=== PATIENT | female | born 1995 | race Caucasian/White ===

== ENCOUNTER 2022-03-26 09:32 | Outpatient (RCR) | payer SELFPAY ==
[2022-03-27] MEDS: RHO(D) IMMUNE GLOBULIN 300 MCG/2 ML SYRINGE IM (18:15)
== END 2022-06-24 23:59 | disposition home or self-care (01) ==
LOC: ANHLAB 09:32
PROVIDERS: PCP Obstetrics & Gynecology; Visit Provider Obstetrics & Gynecology
DX: Z29.13 Encounter for prophylactic Rho(D) immune globulin (principal); O36.0190 Maternal care for anti-D [Rh] antibodies, unspecified trimester, not applicable or unspecified; Z3A.00 Weeks of gestation of pregnancy not specified
CPT/HCPCS: 36415; 85461; 86850; 86900; 86901; 90384; 96372; J2790

== ENCOUNTER 2022-06-16 21:15 | Inpatient (IN) | payer BC, SELFPAY ==
--- NOTE | 2022-06-16 21:15 | LDADM ---
This patient, Peri Colindres, was admitted to Labor/Delivery/Recovery [facility] on 06/16/22 at 21:15. Plans for labor, pain management and were discussed with patient. Patient/family oriented to hospital policies and general routines including ID bracelet, bed and alarms, visiting hours, pain management, procedures, bathroom and other care routines, personal items, smoking policy, room service/diet and guest tray routines, infant security routines, and visiting hours. Patient/Family are encouraged to report perceived risks to care and to ask questions if they do not understand what they are told or what they should do. See OBIX for further documentation.
[2022-06-16 21:30] VITALS: RESP 15; TEMP 37
[2022-06-16 21:31] VITALS: BP 132/87; PULSE 96
[2022-06-16 21:46] VITALS: BP 117/77; PULSE 84
[2022-06-16 22:01] VITALS: BP 121/84; PULSE 84
[2022-06-16 22:16] VITALS: BP 122/82; PULSE 81
[2022-06-17] VITALS (136 sets, daily range): BP systolic 92–143; BP diastolic 34–113; PULSE 40–238; RESP 16–17; TEMP 36.7–37.1; O2SAT 81–100; BMI 26.1
[2022-06-17 00:49] LABS: Basophils Percent Auto 0.4 % (0.2-1.2); Eosinophils Absolute Auto 0.1 K/mm3 (0-0.3); Eosinophils Percent Auto 0.5 % (0-4.4); Hematocrit 36.1 % (37.0-47.0); Hemoglobin 12.1 g/dL (12.0-15.0); Immature Granulocyte Absolute 0.05 K/mm3 (0.00-0.031); Immature Granulocyte Percent A 0.5 % (0-0.5); Lymphocytes Absolute Auto 2.28 K/mm3 (0.9-3.2); Lymphocytes Percent Auto 21.8 % (18.3-44.2); Mean Corpuscular HGB Conc 33.5 g/dl (32-36); Mean Corpuscular Hemoglobin 29.3 pg (26-34); Mean Corpuscular Volume 87.4 fl (80-100); Mean Platelet Volume 10.8 fl (7.4-10.4); Monocytes Absolute Auto 0.5 K/mm3 (0.1-0.6); Monocytes Percent Auto 4.4 % (2.6-8.5); Neutrophils Absolute Auto 7.6 K/mm3 (1.3-6.7); Neutrophils Percent Auto 72.4 % (45.5-73.1); Platelet Count Result 238 k/mm3 (150-375); Red Blood Count 4.13 M/mm3 (4.2-5.4); Red Cell Distribution Width 12.7 % (11.5-14.5); White Blood Count 10.4 K/mm3 (4.5-10.0)
--- NOTE | 2022-06-17 07:01 | PM.IMHP ---
H&P: HPI History of Present Illness Date/Time: 06/17/22 07:01 Chief Complaint: Induction of labor at term Narrative: such 26-year-old 2 para 1 with previous for breech who presents for induction of labor at 41 weeks gestation. The has been uncomplicated. The back is been discussed continuously throughout the with risks and benefits reviewed in great detail. She is negative for group B strep PMFSH Past Medical History Medical History (Updated 06/17/22 @ 07:04 by Antony Piedra MD) Hearing loss Surgical History Surgical History (Updated 06/17/22 @ 07:04 by Antony Piedra MD) H/O LEEP Family History Family History Grandparent Heart disease Acute myocardial infarction Grandparent Heart disease Acute myocardial infarction Father Hypertension Social History Social History Smoking status: Never smoker Substance use: never Lack of Transportation: No Lack of Food: Never True Current Housing: I Have Housing Concerned About Future Housing: No Difficulty Paying Gas/Electric Bills: No Difficulty Paying for Meds: No Currently Unemployed: No Education: Bachelor's Degree Difficulty w/ Childcare or Family Care: No Spiritual care concerns: No Meds Home Medications and Allergies Home Medications Medication Instructions Recorded Confirmed Type vit no.95-ferrous 1 tablet PO DAILY 02/03/19 06/17/22 History fumarate 28 mg-folic acid 800 mcg tablet () Allergies Allergy/AdvReac Type Severity Reaction Status Date / Time No Known Allergies Allergy Verified 05/13/22 15:21 Vital Signs Vital Signs - 24 hr 06/16/22 21:31 06/16/22 21:46 06/16/22 22:01 Temperature Pulse Rate 96 84 84 Respiratory Rate Blood Pressure 132/87 117/77 121/84 Oxygen Delivery 06/16/22 22:16 06/16/22 21:30 06/17/22 00:38 Temperature 98.6 F Pulse Rate 81 84 Respiratory Rate 15 Blood Pressure 122/82 130/87 Oxygen Delivery 06/17/22 00:30 06/17/22 04:43 06/17/22 03:42 Temperature 98.3 F 98.6 F Pulse Rate 86 Respiratory Rate 17 16 Blood Pressure 123/78 Oxygen Delivery 06/17/22 05:05 06/17/22 00:22 Temperature 98.4 F Pulse Rate Respiratory Rate 17 Blood Pressure Oxygen Delivery Room Air Exam Const: General: cooperative, healthy appearing and comfortable Nutritional Appearance: average body habitus Orientation/consciousness: oriented to person, oriented to place and oriented to time Resp: Effort & Inspection: normal respiratory effort Cardio: Rate: regular rate Rhythm: regular rhythm Heart sounds: S1 normal heart sound present and S2 normal heart sound present GI: Inspection: normal to inspection ( soft gravid uterus) : External Female Exam: normal external appearance Speculum Exam - Vagina: normal appearance of the vagina Speculum Exam - Cervix: normal appearance of the cervix ( cervix 2/60/2. Unable to rupture membranes. FHTs reassuring) H&P: Results Labs Labs: Short CBC 06/17/22 Range/Units 00:07 WBC 10.4 H (4.5-10.0) K/mm3 Hgb 12.1 D (12.0-15.0) g/dL Hct 36.1 L (37.0-47.0) % Plt Count 238 (150-375) k/mm3 Assessment and Plan Assessment and plan (1) Post-dates : Code(s): O48.0 - Post-term Status: Acute (2) Previous section: Code(s): Z98.891 - History of uterine scar from previous surgery Status: Acute Plan gentle induction of labor. She has an epidural candidate. Risks and benefits reviewed
--- NOTE | 2022-06-17 08:22 | WPDANESEPP ---
Anes - Eval Pre Procedure Procedure: labor epidural Date/Time: 06/17/22 08:22 Preop Diagnosis: labor pain Pre Op Diagnosis: labor Patient Data Age: 26 Gender: F Height: 1.63 m Weight: 69 kg Last Vital Signs Temp 36.9 C 06/17/22 05:05 Pulse 86 06/17/22 04:43 Resp 17 06/17/22 05:05 BP 123/78 06/17/22 04:43 O2 Del Method Room Air 06/17/22 00:22 Allergies Allergy/AdvReac Type Severity Reaction Status Date / Time No Known Allergies Allergy Verified 05/13/22 15:21 Home Medications Medication Instructions Recorded Confirmed Type vit no.95-ferrous 1 tablet PO DAILY 02/03/19 06/17/22 History fumarate 28 mg-folic acid 800 mcg tablet () Laboratory Tests 06/17/22 06/17/22 06/17/22 00:07 00:07 00:07 WBC 10.4 K/mm3 H K/mm3 (4.5-10.0) RBC 4.13 M/mm3 L M/mm3 (4.2-5.4) Hgb 12.1 g/dL D g/dL (12.0-15.0) Hct 36.1 % L % (37.0-47.0) MCV 87.4 fl fl (80-100) MCH 29.3 pg pg (26-34) MCHC 33.5 g/dl g/dl (32-36) RDW 12.7 % % (11.5-14.5) Plt Count 238 k/mm3 k/mm3 (150-375) MPV 10.8 fl H fl (7.4-10.4) Immature Gran % (Auto) 0.5 % % (0-0.5) Neut % (Auto) 72.4 % % (45.5-73.1) Lymph % (Auto) 21.8 % % (18.3-44.2) [place] % (Auto) 4.4 % % (2.6-8.5) Eos % (Auto) 0.5 % % (0-4.4) Baso % (Auto) 0.4 % % (0.2-1.2) Lymph # (Auto) 2.28 K/mm3 K/mm3 (0.9-3.2) [place] # (Auto) 0.5 K/mm3 K/mm3 (0.1-0.6) Eos # (Auto) 0.1 K/mm3 K/mm3 (0-0.3) Baso # (Auto) 0.0 K/mm3 K/mm3 (0.0-0.1) Abs Immat Gran (auto) 0.05 K/mm3 H K/mm3 (0.00-0.031) Absolute Neuts (auto) 7.6 K/mm3 H K/mm3 (1.3-6.7) Absolute Nucleated RBC 0.0 K/mm3 K/mm3 (0.0-0.012) Nucleated RBC % 0.0 % % (0.0-0.2) RPR Pending Blood Type O Negative Antibody Screen Positive Antibody Identification Passive Due to RH Imm Glob Antigen Identification Cancelled BEHZAD, IgG Interpret Not Performed BEHZAD, Poly Interpret Neg BEHZAD, Complement Interp Not Performed Patient hx anesthesia problems: none Family hx anesthesia problems: none Results Review: All pre-operative results and documents have been reviewed as part of the pre-operative evaluation. [facility] Past Medical History Medical History Hearing loss Surgical History Surgical History H/O LEEP Family History Family History Grandparent Heart disease Acute myocardial infarction Grandparent Heart disease Acute myocardial infarction Father Hypertension Social History Social History Smoking status: Never smoker Substance use: never Lack of Transportation: No Lack of Food: Never True Current Housing: I Have Housing Concerned About Future Housing: No Difficulty Paying Gas/Electric Bills: No Difficulty Paying for Meds: No Currently Unemployed: No Education: Bachelor's Degree Difficulty w/ Childcare or Family Care: No Spiritual care concerns: No Exam Day of Procedure 06/17/22 08:22 Patient weight: normal Heart: regular rate and rhythm Lungs: clear to auscultation and normal air movement Airway: Mallampati scale Neurological: alert and oriented
[2022-06-17] MEDS: LACTATED RINGERS 1,000 ML 125 ML IV CONT ×2 (08:49→10:03)
--- NOTE | 2022-06-17 12:32 | PM.OBPNLAB ---
Pain Control Date/time seen: 06/17/22 12:32 Pain control: tolerating well and epidural Pelvic Exam Dilation (cm): 4 Effacement (%): 75 station: -2 Amniotic membrane status: Leaking Contractions Monitor mode: Internal Contraction pattern: Regular Status status: Category ll
[2022-06-17] MEDS: OXYTOCIN 30 UNITS/NS 500 ML 30 UNITS/500 ML BAG IV CONT (12:38)
[2022-06-17 13:47] LABS: Rapid Plasma Reagin Non-Reactive (NonReactive)
--- NOTE | 2022-06-17 16:13 | PM.OBPRVD ---
OB - Delivery Note Procedure Delivery date: 06/17/22 Procedure: mil Induction method: AROM Delivery augmentation: Pitocin Delivery monitor: External FHT and Internal Uterine Route of delivery: Episiotomy description: None Laceration Description: Perineal - 1st Degree Delivery repair: vicryl Specimen: No Quantitative Blood Loss (ml): 60 Anesthesia type: Epidural Disposition: Floor [place] Baby Date of : 06/17/22 Time of : 16:03 Weeks of gestation at delivery: 41 gender: Female presentation: vertex position: Right Occiput Anterior Placenta delivery description: Spontaneous Cord Vessel Description: 3 Vessels, Nuchal Cord and Loose score one minute: 8 score five minutes: 9
[2022-06-17] MEDS: OXYTOCIN 30 UNITS/NS 500 ML 30 UNITS/500 ML BAG 125 UNITS IV CONT (16:43)
[2022-06-17] MEDS: LANOLIN (LANSINOH) 7.5 GM CREAM 1 APPLIC TOPICAL (18:26)
[2022-06-17] MEDS: WITCH HAZEL 40 PADS 1 PAD TOPICAL (18:26)
[2022-06-17] MEDS: BENZOCAINE 20% AER SPR (*SP) 56 GM CAN 1 SPRAY TOPICAL (18:26)
[2022-06-18] MEDS: ACETAMINOPHEN 325 MG TABLET 650 MG PO ×2 (04:21→14:42)
[2022-06-18 04:52] LABS: Hematocrit 30.3 % (37.0-47.0); Hemoglobin 10.2 g/dL (12.0-15.0)
--- NOTE | 2022-06-18 06:08 | PM.DS ---
DS: Admitting Diagnosis Discharge Date Admitting Diagnosis postdates /previous section DS: Discharge Diagnosis Discharge Diagnosis (1) Previous section: Code(s): Z98.891 - History of uterine scar from previous surgery Status: Acute (2) Post-dates : Code(s): O48.0 - Post-term Status: Acute DS: Summary Hospital Course Reason for hospitalization: patient was admitted for induction of labor at term with postdates Hospital Course: the patient underwent successful vaginal after . Her hospital course unremarkable. She remained afebrile. She was up, breast-feeding, eating regular diet, voiding without difficulty, ambulating, and without complaints. Time Spent with Patient Time attestation: Total time spent providing and/or coordinating discharge services: Exam Const: General: cooperative, healthy appearing and comfortable Nutritional Appearance: average body habitus Orientation/consciousness: oriented to person, oriented to place and oriented to time HENMT: Head: normal to inspection Resp: Effort & Inspection: normal respiratory effort Cardio: Rate: regular rate Rhythm: regular rhythm Heart sounds: S1 normal heart sound present and S2 normal heart sound present GI: Inspection: normal to inspection ( Fundus firm below the umbilicus) DS: Data Data Completed and Pending Labs on day of discharge: Labs from last 24 hours 06/18/22 06/17/22 04:17 00:07 Hgb 10.2 L Hct 30.3 L RPR Non-reactive Discharge Plan Discharge Attending physician on discharge: Antoyn Smith Discharging Clinician: Antony Smith Patient Disposition: Home, Self-Care Activity: may shower, no straining and pelvic rest Diet: heart healthy Wound Care Instructions: follow printed instructions Discharge Instructions: Education: Mom and Baby Guide Given to: Mother Follow-Up: Call your delivering provider's office for an appointment to be seen in: 4 Weeks Mom and baby should come to the [facility] for the follow-up appointment. Appointment Date/Time: June 19, 2022 at 1:30 pm What to expect at your follow-up visit: Physical Assessment Call [phone] if you are unable to keep your appointment time. BREAST CARE: * Wear a snug supportive bra. * For engorgement discomfort: Breast Feeding: * Apply warm moist washcloths * Express milk as needed to relieve engorgement * Wear loose clothing * For sore nipples: * Identify correct latch-on * Apply warm moist washcloths before and after nursing * Air dry nipples after nursing * May apply Lansinoh cream to nipples PERINEAL CARE: * Until bleeding stops, use your dyaln bottle after urinating * Change your pad frequently throughout the day * You may take sitz baths several times a day (fill your bathtub with warm water and soak for 20 minutes.) Do NOT bathe in the water * No tub baths until seen by your physician - You may shower ACTIVITY: * Rest as much as possible. * Do not exercise or lift anything heavier than your baby (such as laundry or other children.) * Avoid stairs or driving as much as possible. * Do not put anything into the vagina. No douching, tampons, or sexual activity until seen by physician. NOTIFY PHYSICIAN IF YOU HAVE ANY QUESTIONS OR IF ANY OF THE FOLLOWING SYMPTOMS OCCUR: * If your perineum becomes red, swollen, or more painful than what you have experienced in the hospital. * If your vaginal bleeding becomes foul smelling. * If your vaginal bleeding becomes more heavy than a period or if your bleeding changes from pink to bright red. However, you may pass an occasional walnut-sized clot once or twice for the first week . * If you experience a sharp, shooting pain in you calves. * If you discover a hard, reddened area on your breast or if you experien
[2022-06-18 07:30] VITALS: BP 125/70; PULSE 77; RESP 16; TEMP 36.9; O2SAT 99
[2022-06-18] MEDS: MULTIVIT/MIN/PREN/FOL AC/IRON TABLET 1 TAB PO (09:15)
--- NOTE | 2022-06-18 09:44 | WPDANLDPN2 ---
Anes-Prog Note L&D Date/Time: 06/18/22 09:44 Comfortable throughout: labor and delivery Neuraxial method: epidural Epidural/Spinal procedure site: clean & non-tender Neuro status: Neuro function grossly intact. Cardiovascular status: normal Respiratory status: normal Airway patency: baseline Mental status: baseline Post-Op hydration status: normal Vital Signs: Last Vital Signs Temp 98.4 F 06/18/22 07:30 Pulse 77 06/18/22 07:30 Resp 16 06/18/22 07:30 BP 125/70 06/18/22 07:30 Pulse Ox 99 06/18/22 07:30 O2 Del Method Room Air 06/17/22 00:22 Pain score (VAS): 0 I/O: Intake & Output 06/17/22 06/18/22 06/18/22 23:59 07:59 15:59 Intake Total 1500 Output Total 143 Balance 1357 Post-procedural complaints: none Patient feedback: Patient satisfied with anesthetic care.
[2022-06-18] MEDS: DOCUSATE SODIUM 100 MG CAPSULE PO (09:56)
[2022-06-18] MEDS: IBUPROFEN 600 MG TABLET PO (09:56)
[2022-06-18] MEDS: TETANUS,DIPHTHERIA,AC PERTUSSIS ADULT (0.5 ML) BOOSTRIX IM (09:59)
--- NOTE | 2022-06-18 10:41 | PC.NURSE ---
[id number] Introductions were made, then consulted with patient to assess needs related to . Mother led the conversation with her?plans to feed?her infant and the?experience so far. Resources provided for inpatient and outpatient services with the feeding sheet, mom/baby guide, business card and name written on the white board. Mother voiced understanding of information and requests assistance. Mother works well with her infant with encouragement and education. Encouraged understanding of the benefits of skin to skin (demonstrating unwrapping and placing upright on her chest), stimulating with massage touch, changing positions to encourage wakefulness, how to watch for early feeding cues, hand expression, responsive feeding, feeding on demand (aiming for 8-12 times in 24 hours, about every 2-3 hours), milk production, building/maintaining a milk supply, duration of feeding, signs of adequate intake/output and how to record on the feeding sheet. Large meconium stool diaper changed. Reviewed positioning and ear, shoulder, hip alignment, supporting the breast to facilitate a deep latch, asymmetrical latch (off-center), leading with the chin with a big, open, wide gape and body close to mother. latched optimally to the right breast in cross cradle position. Education given to mother of how to visualize suck/swallow ratios and listen for drinking at the breast. Infant was able to maintain latch without discomfort to mother. Nipple care reviewed with optimal latch and good positioning. Reviewed good handwashing when or touching the breast/nipples to prevent infection. Resources used to facilitate learning were used with the visual handouts, tool, mom and baby guide. Mother voiced understanding of skin to skin, stimulating with massage touch, responsive feedings, hand expressed colostrum, talking to to encourage if it has been 2 -2.5 hours since the start of the last , to call if does not latch, or if there is discomfort with . Resources provided for inpatient/outpatient with business card, name written on the white board and the mom/baby guide. Parents voiced understanding of information, demonstrated learning and will call if there is a request for assistance. Reported to the primary RN.
[2022-06-18 12:04] VITALS: BP 120/80; PULSE 78; RESP 16; TEMP 36.7; O2SAT 98
[2022-06-18] MEDS: RHO(D) IMMUNE GLOBULIN 300 MCG/2 ML SYRINGE IM (12:39)
--- NOTE | 2022-06-18 15:56 | PC.NURSE ---
[phone] Mother led the conversation with her experience and plan to feed her so far and her ability to independently latch optimally without discomfort, however; we discussed concerns with effectively latching. Mother is feeding appropriately for growth of infant and understands stimulating infant to eat if needed. has had appropriate feedings in the last 24 hours meets the outcomes for weight, output and jaundice at this time. Mother states she is confident to continue her at home, when to call for assistance and denies any additional assistance or education at this time after questions and concerns were discussed. Reinforced understanding of milk production, transition of milk, signs of adequate intake, transition of stool, prevention/relief of engorgement, responsive watching for feeding cues, the different methods of stimulating to breastfeed 2-3 hours after the start of the last feeding, community resources, medication information reviewed per [facility] and when to call a provider using the resource of the mom and baby guide. Mother voiced understanding of the education shared. Reported to the primary RN.
[2022-06-19 14:20] VITALS: BP 112/83; PULSE 94; RESP 20; TEMP 37.3; O2SAT 99
== END 2022-06-18 17:09 | disposition home or self-care (01) | DRG 807 ==
LOC: ANHLDR 23:28 → ANHOB2 06-17 19:04
PROVIDERS: Obstetrics & Gynecology; Admitting Provider Obstetrics & Gynecology; Visit Provider Obstetrics & Gynecology
DX: O34.219 Maternal care for unspecified type scar from previous cesarean delivery (principal); Z37.0 Single live birth; O69.81X0 Labor and delivery complicated by cord around neck, without compression, not applicable or unspecified; O70.0 First degree perineal laceration during delivery; O48.0 Post-term pregnancy; Z3A.41 41 weeks gestation of pregnancy
CPT/HCPCS: 36415; 85014; 85018; 85025; 85461; 86592; 86850; 86880; 86900; 86901; 86902; 90384; 90715; A9270; J2590; J2790; J2795; J7120